=== PATIENT | male | born 1960 | race Caucasian/White ===

== ENCOUNTER 2021-10-19 17:50 | Inpatient (IN) | payer SELFPAY ==
[~2021-10-19] VITALS: Ht 182.9 cm; Wt 97.4 kg
[2021-10-19] VITALS (93 sets, daily range): BP systolic 161–168; BP diastolic 100–107; PULSE 90; TEMP 99.2; O2SAT 93–100
[2021-10-19 18:24] LABS: BASO # 0.1 K/mm3 (0.0-0.2); BASO % 1.1 % (0.0-2.0); EOS # 0.2 K/mm3 (0.0-0.7); EOS % 2.3 % (0.0-4.0); GRAN # 6.8 K/mm3 (1.4-6.5); GRAN % 73.5 % (42.2-75.2); HEMATOCRIT 44.5 % (42.0-52.0); HEMOGLOBIN 15.3 g/dl (13.5-18.0); LYMPH # 1.7 K/mm3 (1.2-3.4); LYMPH % 18.2 % (20.0-51.0); MEAN CELL VOLUME 91 fl (80.0-100.0); MEAN CORPUSCULAR HEMOGLOBIN 31 pg (27-31); MEAN CORPUSCULAR HGB CONC 34 g/dl (33.0-37.0); MEAN PLATELET VOLUME 10.7 fl (7.4-10.4); MONO # 0.4 K/mm3 (0.1-0.6); MONO % 4.7 % (1.7-9.3); PLATELET COUNT 213 K/mm3 (130-400); REDCELL DISTRIBUTION WIDTH-CV 13.4 % (11.5-14.5)
[2021-10-19 18:33] LABS: INR 1.2 (0.8-3.0); PROTHROMBIN TIME 13.7 SECONDS (9.7-12.8)
[2021-10-19 18:40] LABS: ALBUMIN 3.9 gm/dL (3.4-4.8); BILIRUBIN,TOTAL 0.6 mg/dL (0.2-1.2); CALCIUM 9.5 mg/dL (8.4-10.2); CREATININE, serum 1.31 mg/dL (0.72-1.25); POTASSIUM 3.3 mmol/L (3.5-4.5)
[2021-10-19 18:49] LABS: TROPONIN-I 0.034 ng/mL (0.00-0.033)
[2021-10-19 20:33] LABS: COLLECTION METHOD CLEAN CATCH; URINE APPEARANCE Clear (CLEAR/HAZY); URINE BLOOD Negative (NEGATIVE); URINE COLOR Yellow (YELLOW); URINE GLUCOSE Negative (NEGATIVE); URINE KETONE Negative (NEGATIVE); URINE NITRATE Negative (NEGATIVE); URINE PROTEIN(semi-quant) 1+ (NEGATIVE); URINE UROBILINOGEN 0.2 E.U/dL (0.2-1.0)
[2021-10-19 20:42] LABS: MUCOUS Present (NOT PRESENT); SQUAMOUS EPITHELIAL None Seen /hpf (0-10); URINE BACTERIA None Seen /hpf (NONE SEEN); URINE RBC 0-2 /hpf (0-2); URINE WBC 0-2 /hpf (0-2)
[2021-10-19] MEDS ORDERED: MACROBID 1100 MG/CAP PO (21:43)
[2021-10-20] VITALS (968 sets, daily range): BP systolic 128–159; BP diastolic 64–125; PULSE 66–92; TEMP 97.9–99; O2SAT 75–100
[2021-10-20 07:26] LABS: CHOLESTEROL RISK RATIO 5.6
--- NOTE | 2021-10-20 13:37 | NUR ---
Patient is currently meeting with speech therapy for their evaluation. workers' compensation hearings officer met with Altagracia Greenberg (cousin) #[phone] and cousin Kenyon Greenberg. Altagracia states that patient is not and resides in [place] alone. Patient is not employed at this time. Patient has one son, Michael that resides in [place]. Altagracia states that patient and son have a strained relationship. Patient's primary care provider is Afua Lyle in [place]. Martha with [facility] received a referral and will assess for admission to their unit. Altagracia spoke with patient's estate planning attorney, while she was at the hospital, and advised that patient's estate planning attorney will be at the hospital later today to assist patient is completing a durable power of estate planning attorney for health care and a financial power of estate planning attorney. Altagracia states she met with hospital financial counselor and will begin the [employer] [facility] application as well as disability.
[2021-10-21] VITALS (1024 sets, daily range): BP systolic 129–183; BP diastolic 72–127; PULSE 76–120; TEMP 98.1–98.6; O2SAT 56–100
[2021-10-21 06:21] LABS: ALBUMIN 3.5 gm/dL (3.4-4.8); CREATININE, serum 1.13 mg/dL (0.72-1.25); MAGNESIUM 2.2 mg/dL (1.6-2.6); PHOSPHOROUS 2.4 mg/dL (2.3-4.7); POTASSIUM 3.6 mmol/L (3.5-4.5)
--- NOTE | 2021-10-21 07:46 | NUR ---
CONSENT SIGNED BY PT FOR [place]. PT STATED THAT HE WANTED HIS DPOA CALLED.
[2021-10-21 10:21] LABS: HEMATOCRIT 42.4 % (42.0-52.0); HEMOGLOBIN 14.8 g/dl (13.5-18.0); MEAN CELL VOLUME 89 fl (80.0-100.0); MEAN CORPUSCULAR HEMOGLOBIN 31 pg (27-31); MEAN CORPUSCULAR HGB CONC 35 g/dl (33.0-37.0); MEAN PLATELET VOLUME 10.7 fl (7.4-10.4); PLATELET COUNT 230 K/mm3 (130-400); RED BLOOD COUNT 4.76 M/mm3 (4.20-5.60); REDCELL DISTRIBUTION WIDTH-CV 13.6 % (11.5-14.5)
[2021-10-21 10:25] LABS: INR 1.1 (0.8-3.0)
[2021-10-21 10:33] LABS: CALCIUM 9.2 mg/dL (8.4-10.2); CREATININE, serum 1.22 mg/dL (0.72-1.25); POTASSIUM 3.6 mmol/L (3.5-4.5)
[2021-10-21 10:52] LABS: BAND 4 % (0-10); LYMPHOCYTE 7 % (20.0-51.0); NEUTROPHILS 87 % (42.0-75.2)
[2021-10-21 10:53] LABS: PLATELET ESTIMATE NORMAL (NORMAL)
--- NOTE | 2021-10-21 13:07 | NUR ---
Addis: Zaida Situation: automatic fancy machine operator stopped by the room on rounds Background: Pt was resting but also emotional Assessment: Pt asked automatic fancy machine operator to call a cardiac nurse practitioner in [place], automatic fancy machine operator called and left message. Pt appreciated the visit Recommendation: automatic fancy machine operator will follow up as needed
--- NOTE | 2021-10-21 15:13 | NUR ---
insulation worker met with patient's cousin, Altagracia, and took copies of patient's durable power of transactional attorney for health care and provided a copy for our financial counselor, Sammi. Patient also secured a power of transactional attorney for finances.
--- NOTE | 2021-10-21 15:20 | NUR ---
tree worker met with Martha at [facility] unit and confirmed that she is following and screening patient for possible admission to their unit when stable.
[2021-10-21] MEDS ORDERED: LIPITOR 40MG TA40 MG PO (22:49)
[2021-10-21] MEDS ORDERED: PRINIVIL5 MG PO (22:50)
[2021-10-21] MEDS ORDERED: LOPRESSOR 225 MG/TAB PO (22:50)
[2021-10-21] MEDS ORDERED: NORVASC 10MG10 MG PO (22:50)
[2021-10-21] MEDS ORDERED: PREDNISONE10 MG PO (22:51)
[2021-10-21] MEDS ORDERED: CLEOCIN HCL300 MG PO (22:53)
[2021-10-21] MEDS ORDERED: ASPIRIN 32325 MG/TAB PO (23:02)
[2021-10-22] VITALS (582 sets, daily range): BP systolic 138–178; BP diastolic 88–108; PULSE 73–79; TEMP 97.7–98.4; O2SAT 88–100
--- NOTE | 2021-10-22 06:30 | NUR ---
REPORT RECEIVED FROM ROSS DIAZ; PATIENT DID NOT SLEEP LAST NIGHT AND REMAINS SITTING IN THE RECLINER HE WAS OVERNIGHT. VITAL SIGNS ARE WITHIN NORMAL LIMITS WITH THE EXCEPTION OF BLOOD PRESSURE WHICH IS ELEVATED THIS MORNING. PATIENT IS GETTING NS THROUGH PERIPHERAL LINE.
--- NOTE | 2021-10-22 14:14 | NUR ---
CALLED REPORT TO ROSS PITT; PATIENT GOING TO [facility] FOR REHAB POST STROKE. PATIENT'S VITAL SIGNS ARE WITHIN NORMAL LIMITS AND HE HAS WORKED WITH ST TODAY AND IS SWITCHING TO MECHANICAL SOFT DIET AND REMAINING ON NECTAR THICK LIQUIDS.
== END 2021-10-22 15:05 | DRG 40 ==
LOC: COL.ER 17:50 → ICU 20:19 → MEDICAL 20:19 → COL.ER 20:19 → ICU 21:36
PROVIDERS: Emergency Medicine; Nurse Practitioner Family; ADMIT Internal Medicine
PROC: 0JH632Z Insertion of Monitoring Device into Chest Subcutaneous Tissue and Fascia, Percutaneous Approach (ICD-10-PCS; principal; 2021-10-21)
DX: I63.9 Cerebral infarction, unspecified (principal); J96.01 Acute respiratory failure with hypoxia; I21.A1 Myocardial infarction type 2; E87.2 Acidosis; N17.9 Acute kidney failure, unspecified; N39.0 Urinary tract infection, site not specified; Z66 Do not resuscitate; I16.1 Hypertensive emergency; I69.354 Hemiplegia and hemiparesis following cerebral infarction affecting left non-dominant side; J44.1 Chronic obstructive pulmonary disease with (acute) exacerbation; E87.6 Hypokalemia; I49.3 Ventricular premature depolarization; E11.65 Type 2 diabetes mellitus with hyperglycemia; F17.210 Nicotine dependence, cigarettes, uncomplicated; I16.0 Hypertensive urgency; E78.5 Hyperlipidemia, unspecified; M62.81 Muscle weakness (generalized); R29.709 NIHSS score 9; I12.9 Hypertensive chronic kidney disease with stage 1 through stage 4 chronic kidney disease, or unspecified chronic kidney disease; E11.22 Type 2 diabetes mellitus with diabetic chronic kidney disease; N18.9 Chronic kidney disease, unspecified; Z88.0 Allergy status to penicillin
CPT/HCPCS: A9575; C1764; J1650; J1815; J2704; J2920; J3480; J7030; J7050; Q9967

== ENCOUNTER 2021-10-22 13:08 | Inpatient (IN) | payer SELFPAY ==
[~2021-10-22] VITALS: Ht 185.4 cm; Wt 92.8 kg
[2021-10-22] VITALS (42 sets, daily range): BP systolic 148–161; BP diastolic 82–98; PULSE 69–79; TEMP 97.6–98.2; O2SAT 90–97
[~2021-10-22 13:08] MED LIST: ASPIRIN 32325 MG/TAB PO; CLEOCIN HCL300 MG PO; LIPITOR 40MG TA40 MG PO; LOPRESSOR 225 MG/TAB PO; MACROBID 1100 MG/CAP PO; NORVASC 10MG10 MG PO; PREDNISONE10 MG PO; PRINIVIL5 MG PO
--- NOTE | 2021-10-22 15:40 | NUR ---
Pt arrived to unit from ICU via wc. Pt. transferred to bed requiring 1 assist. Pt. is alert & oriented x 4. Denies pain or discomfort. Left sided weakness noted. Pt. wears glasses. Admission assessments completed. Orientation provided to room/unit
--- NOTE | 2021-10-22 19:00 | NUR ---
RECEIVED CHANGE OF SHIFT REPORT FROM DAY SHIFT RN.
--- NOTE | 2021-10-22 19:15 | NUR ---
OBSERVED LUE FLACCID WITH LLE WEAKNESS, HAND PSYCHIATRIC REGISTERED NURSE UNEQUAL, L REGISTERED TRAVEL NURSE FLACCID. REPORTS FEELING CLAUSTROPHOBIC IN BED, REQUEST AND PIVOT TRANSFER PATIENT FROM BED TO CHAIR.
[2021-10-23 05:41] VITALS: BP 161/96; PULSE 62; TEMP 98.2
--- NOTE | 2021-10-23 06:53 | NUR ---
BEDSIDE REPORT NOW. PATIENT RESTING IN BED. CALL LIGHT IN REACH.
--- NOTE | 2021-10-23 07:20 | NUR ---
CHANGE OF SHIFT REPORT GIVEN TO DAY SHIFT RNED.
[2021-10-23 16:44] VITALS: BP 140/99; PULSE 69; TEMP 98
--- NOTE | 2021-10-23 17:46 | NUR ---
ASSESSMENT DONE AT 8 AM. WAS LATE CHARTING IT. PATIENT HAS BEEN COUGHING WITH DRINGING WITH WATER AND PILLS. STARTED ON APPLE SAUCE WITH MEDICATION AND HE HAS BEEN DOING GOOD WITH IT. SPEECH WAS AWARE. PATIENT ABLE TO GET UP X 1 TO COMMODE THIS AM AND IT WAS HARD TO GET BACK IN BED. PATIENT LEFT LEG WEAK. LEFT ARM FLACCID. PATIENT COUGH WITH THICK PHLEMG NOTED.
--- NOTE | 2021-10-23 21:15 | NUR ---
PT RESTING IN BED. REPOSITIONED FOR COMFORT. LT SIDED WEAKNESS. HAS MINIMAL NEW CLIENT BANKING SERVICES CLERK IN LT HAND. NEWS AGENT TENNIS BALL. NO COUGHING TONIGHT. TAKES HS MEDS WITH APPLESAUCE WITH NO DIFFICULTY. HAS GENERALIZED ACHES. SEE MAR FOR TYLENOL GIVEN. ALSO GAVE MELATONIN FOR SLEEP. CALL LIGHT IN REACH. BED ALARM SET.
[2021-10-24 00:44] VITALS: BP 159/91; PULSE 57; TEMP 97.7
--- NOTE | 2021-10-24 00:52 | NUR ---
PT C/O SOA. VS 159/91- 57-20-95%RA- TEMP 97.7. HAVING EXP WHEEZING. HX COPD. NOTIFIED RAMONA ZAMORA. SEE NEW ORDER FOR SVN. RT NOTIFIED.
--- NOTE | 2021-10-24 01:19 | NUR ---
PT NOW REPORTS MID EPIGASTRIC PRESSURE. NOTIFIED RAMONA ZAMORA. SEE NEW ORDERS FOR EKG AND TROPONIN.
--- NOTE | 2021-10-24 02:01 | NUR ---
LAB HERE TO DRAW TROPONIN. PT DENIES ANY FURTHER EPIGASTRIC PRESSURE AT THIS TIME. ATTEMPTED #20 GAUGE TO RT F/A X2 - INFILTRATED. TELE STARTED.
--- NOTE | 2021-10-24 02:12 | NUR ---
INT NEEDLE #20G STARTED RT F/A. FLUSHES WELL.
--- NOTE | 2021-10-24 02:16 | NUR ---
PT SLEEPING. NO DISTRESS.
[2021-10-24 04:11] VITALS: BP 147/90; PULSE 59; TEMP 97.5
[2021-10-24 04:45] LABS: BASO % 0.1 % (0.0-2.0); EOS # 0.2 K/mm3 (0.0-0.7); EOS % 1.6 % (0.0-4.0); GRAN # 6.6 K/mm3 (1.4-6.5); GRAN % 63.2 % (42.2-75.2); HEMOGLOBIN 16.1 g/dl (13.5-18.0); LYMPH # 2.9 K/mm3 (1.2-3.4); MEAN CELL VOLUME 89 fl (80.0-100.0); MEAN CORPUSCULAR HEMOGLOBIN 31 pg (27-31); MEAN CORPUSCULAR HGB CONC 34 g/dl (33.0-37.0); MEAN PLATELET VOLUME 10.5 fl (7.4-10.4); MONO # 0.7 K/mm3 (0.1-0.6); MONO % 6.7 % (1.7-9.3); PLATELET COUNT 237 K/mm3 (130-400); RED BLOOD COUNT 5.28 M/mm3 (4.20-5.60); REDCELL DISTRIBUTION WIDTH-CV 13.6 % (11.5-14.5)
[2021-10-24 05:02] LABS: CALCIUM 9.2 mg/dL (8.4-10.2); CREATININE, serum 1.15 mg/dL (0.72-1.25); POTASSIUM 3.6 mmol/L (3.5-4.5)
--- NOTE | 2021-10-24 06:49 | NUR ---
Shift report received from retail shift leader RN
[2021-10-24 07:42] VITALS: BP 143/89; PULSE 60; TEMP 97.5
--- NOTE | 2021-10-24 10:57 | NUR ---
Pt. back in room after PT. He remains on telemetry. He denies pain/discomfort. Denies additional needs. Call light is in his reach. Bed alarm is on
[2021-10-24 16:00] VITALS: BP 156/91
[2021-10-24 17:56] VITALS: BP 158/91; PULSE 74; TEMP 98
[2021-10-24 18:26] VITALS: PULSE 0
--- NOTE | 2021-10-24 20:00 | NUR ---
PT RESTING IN BED. IN GOOD SPIRITS. 2:1 ASSIST TO BR. VOIDED W/O DIFFICULTY. TELE SB-SR. NO CHEST PRESSURE OR PAIN. LOOP RECORDER DRSG CDI. LEFT SIDE HEMIPARESIS. PT USING TENNIS BALL TO EXERCISE ASSET ACCOUNTANT. NO BM TODAY. PT DENIES DISCOMFORT. BACK TO BED. CALL LIGHT IN REACH. BED ALARM SET.
[2021-10-25 00:17] VITALS: BP 11/73; BP 111/73; PULSE 60; TEMP 97.5
--- NOTE | 2021-10-25 01:48 | NUR ---
PT SLEEPING AT THIS TIME. NO SIGNS OF DISTRESS NOTED. NO VOICED CONCERNS. ASSESSED PT WHILE SLEEPING. BREATHE SOUNDS WERE CLEAR AND EQUAL BILAT. NO INDICATION FOR TREATMENT AT THIS TIME. WILL CONTINUE TO MONITOR PT.
[2021-10-25 03:03] VITALS: BP 129/72; PULSE 58; TEMP 97.8
--- NOTE | 2021-10-25 06:59 | NUR ---
Shift report received from shift lab technician RN
--- NOTE | 2021-10-25 07:51 | NUR ---
Pt eating breakfast and reporting difficulty breathing. Pt. denies choking. Reports feeling pain in left upper chest. Denies chest pressure or chest tightness. Respirations are nonlabored, LCTAB. Pt. feeling like he needs to cough up phlegm. RT notified.
--- NOTE | 2021-10-25 07:57 | NUR ---
(LATE ENTRY) SW met with patient to complete intake. Patient reports that he lives at home alone in [place]. It is a two story home with a flight of stairs. His bedroom is located upstairs but does have access to a bedroom on the first floor that he will have to move into. There are two bathrooms, one on each level of the home. The downstairs bath has a walk in shower, but is needing to be fixed. Patient reports to being fulling independent with his ADL's prior to CVA, but relied on his sister Altagracia Greenberg ([phone]) to drive him places. Patient uses a cane to assist with ambulation. He has no home oxygen needs. PCP is Dr. Afua Lyle and he utilizes [facility] in for prescriptions. Patient reports to no cost difficulty. He is uninsured, but states his sister has started the Medicaid application process. SW reviewed patient's goals of being able to walk and not crawl in addition to regaining his independence and managing stairs. SW educated patient on role with in team.
--- NOTE | 2021-10-25 07:59 | NUR ---
RT in room to administer duoneb
--- NOTE | 2021-10-25 08:13 | NUR ---
Pt reporting that it still feels hard to take a breath. Resp are nonlabored, LCTAB. Dr. Velazquez notified that pt is not feeling better. CXR and EKG ordered by Dr. Velazquez. Pt. also requesting an anti-anxiety medication. Ativan ordered x 1 dose.
--- NOTE | 2021-10-25 09:33 | NUR ---
CXR and EKG completed. Pt. sitting up in bed. He reports that chest pain has resolved but still feels like it is hard to take a deep breath. Pt. remains with regular, even respirations. LCTAB. PT in room to do bed exercises. Call light is in his reach
[2021-10-25 12:27] VITALS: BP 112/71; PULSE 64; TEMP 97.5
--- NOTE | 2021-10-25 13:11 | NUR ---
Outbound Telemarketer rounds: Outbound Telemarketer visit attempted. No Patient in room. RN had stated that if Patients were not in rooms, the Patient was most likely at therapy.
--- NOTE | 2021-10-25 14:49 | NUR ---
Pt has completed a shower w/ OT assistance. He reports feeling better than he did this morning. He would like to have a prn order for an anxiety medication for any future episodes. Will discuss with hospitalist.
[2021-10-25 16:00] VITALS: BP 133/84; PULSE 68; TEMP 97.7
--- NOTE | 2021-10-25 17:44 | NUR ---
PATIENT ALERT AND ORIENTED X4. VSS. PATIENT HERE FOR CVA. PATIENT DISPLAYS LEFT SIDED WEAKNESS, PARTICULARLY LUE. LUNGS CTA. BOWEL SOUNDS ACTIVE. DRESSING TO RIGHT UPPER CHEST WITH GAUZE AND PAPER TAPE, CDI. PATIENT DENIES ANY PAIN. MACROBID ADMINISTERED. PATIENT RESTING IN BED WITH CALL LIGHT NEAR.
[2021-10-25 18:00] VITALS: BP 153/86; PULSE 71; TEMP 97.6
--- NOTE | 2021-10-25 21:00 | NUR ---
PT RESTING IN BED. A&O X4. SPEECH SLUURED. LT SIDED WEAKNESS. PT REPORTS ANXIETY UNDER CONTROL AT THIS TIME. NO CHEST PRESSURE OR DYSPNEA. OCCASIONAL NON PRODUCTIVE COUGH. NO RESP DISTRESS. NO NEEDS AT THIS TIME. CALL LIGHT IN REACH. BED ALARM SET.
--- NOTE | 2021-10-25 22:37 | NUR ---
PT RESITN IN BED. NO DISTRESS. DENIES ANXIETY. TELEMETRY CONTINUES. DENIES CHEST PRESSURE. LT SIDED WEAKNESS. SEE SHIFT ASSESSMENT. HAS OCCASIONAL NON PRODUCTIVE COUGH. CALL LIGHT IN REACH. BED ALARM SET.
[2021-10-25 23:24] VITALS: BP 136/82; PULSE 63; TEMP 97.7
[2021-10-26 04:00] VITALS: BP 129/79; PULSE 78; TEMP 97.9
--- NOTE | 2021-10-26 04:24 | NUR ---
PT ANXIOUS AND ACHEY ALL OVER. SEE MAR FOR ATIVAN AND TYLENOL. REPOSITIONED FOR COMFORT.
--- NOTE | 2021-10-26 07:12 | NUR ---
BEDSIDE REPORT DONE. PATIENT WAS COMPLAINING OF BACK PAIN. SAT PATIENT UP AND PLACE HIM IN RECLINER. CALL LIGHT IN REACH.
[2021-10-26 08:00] VITALS: BP 135/87; PULSE 83; TEMP 97.7
--- NOTE | 2021-10-26 10:04 | NUR ---
ASSESSMENT DONE ORDER. PATIENT ALERT AND ORIENT X 4 WTIH NO MEMEORY ISSUE. NO PAIN AT THIS TIME. PATIENT HAD A BOWEL MOVEMENT TODAY (LARGE) HAD ATIVAN EARLY THIS AM. LUNG WHEEZING IN UPPER LOBES(INHALING) PATIENT IS A FORMER SMOKER AND HAS SMOKKER COUGH. PATIENT ABLE TO COUGH BUT STILL HAVE SMALL AMOUNT OF WHEEZING
[2021-10-26 11:53] VITALS: BP 122/78; PULSE 68
[2021-10-26 15:46] VITALS: BP 120/88; PULSE 78; TEMP 97.6
--- NOTE | 2021-10-26 18:24 | NUR ---
PATIENT HAD A BOWEL MOVEMENT TODAY. NEED TO USE THE WHEELCHAIR TODAY SINCE PATIENT WAS UNABLE TO GET TO THE BATHROOM WITH JUST ONE PERSON. PATIENT TODAY IS A 2 PERSON ASSISTANCE
--- NOTE | 2021-10-26 20:00 | NUR ---
PT SL AGITATED TONIGHT. WORRIED ABOUT NOT SLEEPING. CANT GET COMFORTABLE. SEE MAR FOR ATIVAN AND TYLENOL. LT SIDED HEMIPARESIS. PT REPOSITIONS SELF FOR COMFORT. TEL INTACT. DENIES CHEST PAIN OR DYSPNEA. HAS OCCASIONAL DRY COUGH. MIN AUDIBLE EXP WHEEZE. CALL LIGHT IN REACH. BED ALARM SET.
[2021-10-26 20:25] VITALS: BP 137/91; PULSE 76; TEMP 98.9
[2021-10-26 23:10] VITALS: BP 133/93; PULSE 65; TEMP 97.3
--- NOTE | 2021-10-27 00:06 | NUR ---
PT INCONTINENT OF URINE. CLEANED UP AND LINENS CHANGED. PT STARTED COUGHING. HOB ELEVATED 90 DEGREES. PERSISTENT WET COUGH. RT NOTIFIED FOR SVN. O2 SAT 98% ON RA. NOTIFIED JAKY KUMARI.
--- NOTE | 2021-10-27 00:10 | NUR ---
JAKY KUMARI IS HERE NOW.
--- NOTE | 2021-10-27 00:22 | NUR ---
STILL COUGHING BUT NOT INTENSE. SEE NEW ORDER FOR PORTABLE CXR IN AM. PT INFORMED. O2 SAT MAINTAIN 97-98%.
--- NOTE | 2021-10-27 00:35 | NUR ---
RT HERE FOR SVN TX.
--- NOTE | 2021-10-27 00:48 | NUR ---
PT INTERMITTENTLY FALLS ASLEEP BETWEEN PERIODS OF COUGHING.
--- NOTE | 2021-10-27 01:28 | NUR ---
PT HOB ELEVATED. STILL COUGHING AT TIMES. NONPRODUCTIVE. PT ACHEY FROM COUGHING. GAVE TYLENOL WITH APPLESAUCE.
[2021-10-27 03:51] VITALS: BP 119/81; PULSE 85; TEMP 97.6
--- NOTE | 2021-10-27 04:57 | NUR ---
PT RESTING AT THIS TIME. NO DISTRESS.
--- NOTE | 2021-10-27 06:18 | NUR ---
PT RESTING. NO RESP DISTRESS. OCCASIONAL LOOSE NONPRODUCTIVE COUGH NOTED. LAB AND RADIOLOGY HERE EARLIER.
[2021-10-27 06:34] LABS: BASO # 0.1 K/mm3 (0.0-0.2); BASO % 0.3 % (0.0-2.0); EOS # 0.2 K/mm3 (0.0-0.7); EOS % 1.3 % (0.0-4.0); GRAN # 12.4 K/mm3 (1.4-6.5); GRAN % 73.5 % (42.2-75.2); HEMATOCRIT 48.4 % (42.0-52.0); HEMOGLOBIN 16.8 g/dl (13.5-18.0); LYMPH % 17.5 % (20.0-51.0); MEAN CELL VOLUME 89 fl (80.0-100.0); MEAN CORPUSCULAR HEMOGLOBIN 31 pg (27-31); MEAN CORPUSCULAR HGB CONC 35 g/dl (33.0-37.0); MEAN PLATELET VOLUME 10.9 fl (7.4-10.4); MONO # 1.2 K/mm3 (0.1-0.6); MONO % 6.9 % (1.7-9.3); PLATELET COUNT 266 K/mm3 (130-400); RED BLOOD COUNT 5.44 M/mm3 (4.20-5.60); REDCELL DISTRIBUTION WIDTH-CV 13.3 % (11.5-14.5)
--- NOTE | 2021-10-27 06:51 | NUR ---
Shift report received from shift supervisor rn RN
[2021-10-27 06:58] LABS: CALCIUM 9.3 mg/dL (8.4-10.2); CREATININE, serum 1.17 mg/dL (0.72-1.25); MAGNESIUM 2.3 mg/dL (1.6-2.6); POTASSIUM 3.9 mmol/L (3.5-4.5)
[2021-10-27 08:00] VITALS: BP 126/83; PULSE 94; TEMP 98
--- NOTE | 2021-10-27 08:40 | NUR ---
Pt. noted to have frequent while coughing eating breakfast. Pt. feels that his liquids were causing him to cough. He reports that he is feeling tired today d/t being up all night coughing. ST notified. LCTAB. VSS. Call light is within his reach
[2021-10-27 12:00] VITALS: BP 129/81; PULSE 81; TEMP 97.8
--- NOTE | 2021-10-27 12:55 | NUR ---
Pt assisted back to bed using a gait belt and FWW. Pt had continued coughing while eating his lunch. Pt education provided re: sitting up in chair for meals. Initial dose of IV Maxipime given to IV site right forearm. No sx of infiltration post IV med admininstration. Pt. continues to report feeling tired. No wheezing or difficulty breathing. Call light is in his reach. Bed alarm
[2021-10-27 16:00] VITALS: BP 120/66; PULSE 76; TEMP 97.2
--- NOTE | 2021-10-27 17:44 | NUR ---
Pt tolerated a mech soft dinner w/out episodes of coughing/choking. Pt. resting in left side lying position in bed. Denies any needs at this time. Call light is in his reach
--- NOTE | 2021-10-27 19:08 | NUR ---
RECEIVED CHANGE OF SHIFT REPORT FROM DAY SHIFT RN.
[2021-10-27 20:17] VITALS: BP 113/78; PULSE 72; TEMP 98.2
[2021-10-28] VITALS (7 sets, daily range): BP systolic 91–144; BP diastolic 65–98; PULSE 60–95; TEMP 97.2–98.2
--- NOTE | 2021-10-28 00:31 | NUR ---
PATIENT REFUSED SCD AT , DENIED ANY OTHER NEEDS AT THAT TIME.
--- NOTE | 2021-10-28 06:49 | NUR ---
Shift report received from warehouse shift supervisor RN
--- NOTE | 2021-10-28 07:03 | NUR ---
CHANGE OF SHIFT REPORT GIVEN TO DAY SHIFT RNYOANDY.
--- NOTE | 2021-10-28 10:48 | NUR ---
Pt is currently off the unit for Group Therapy
--- NOTE | 2021-10-28 18:30 | NUR ---
RECEIVED CHANGE OF SHIFT REPORT FROM DAY SHIFT RN.
--- NOTE | 2021-10-28 18:33 | NUR ---
IV abx given. Pt. reports feeling like he still cannot take in a deep enough breath to elicit a deep cough. He thinks that nebulizer treatments sometimes help him cough better. RT contacted for treatment
[2021-10-29] VITALS (8 sets, daily range): BP systolic 101–135; BP diastolic 64–87; PULSE 63–99; TEMP 97.4–99.3
--- NOTE | 2021-10-29 06:41 | NUR ---
BEDSIDE REPORT DONE. PATIENT RESTING IN BED. CALL LIGHT IN REACH
--- NOTE | 2021-10-29 07:26 | NUR ---
CHANGE OF SHIFT REPORT GIVEN TO DAY SHIFT RNDE.
--- NOTE | 2021-10-29 10:48 | NUR ---
ASSESSMENT DONE ORDER. PATIENT ALERT X 4 WITH NO MEMORY ISSUE. PATIENT HAD AN EPOSIDE OF VOMITING TODAY WITH PILLS PLUS FOOD. LUNG RALES NOTED BUT PATIEN STATED THAT HE HSA BEEN HAVING RALES SINCE YESTERDAY DUE TO STARTING THE MUCINEX. PATIENT STATED THAT HE WAS ABLE TO TAKE A DEEP BREATH AND DOING BETTER. INFORM DOCTOR MIREYA AND SPEECH.
--- NOTE | 2021-10-29 14:20 | NUR ---
Reviewed Team Conference note w/ pt & provided copy. Informed him the team does not feel he is ready for d/c so will re-evaluate next 11/05/21. He stated he is fine w/ this plan. Told him we would like to do a family meeting next Wednesday & he okayed for SW to contact his cousin, Altagracia. Will continue to follow for d/c planning & support.
--- NOTE | 2021-10-29 18:48 | NUR ---
ASPIRATION AGAIN TODAY DRINKING WATER. PATIENT VOMITED X 1 BUT THIS TIMIE IT WAS JUST WATER. PATIENT WAS HAVING A HARD TIME BREATHING AFTER 15 SEC. PATIENT STATED THAT HE ABLE TO BREATH BETTER NOW. SPOKE WITH KAI ARMINDA FONSECA AND SHE WILL ORDER BREATHING TREATMENT, NPO AND FLUIDS, CHEST X RAY. INFORM NIGHT NURSE ABOUT NEW ORDER
--- NOTE | 2021-10-29 18:54 | NUR ---
RECEIVED CHANGE OF SHIFT REPORT FROM DAY SHIFT RN. PATIENT REPORTS HAS SMALL BM THIS MORNING. DENIES ANY NEEDS AT THIS TIME.
--- NOTE | 2021-10-29 20:00 | NUR ---
DENIES CHEST PAIN/SOA AT THIS TIME. DENIES NAUSEA. REPORT HAS COUGH BUT NO SPUTUM EXPECTORATED. DENIES ANY NEEDS AT THIS TIME.
[2021-10-30 04:07] VITALS: BP 100/68; PULSE 80; TEMP 98.8
--- NOTE | 2021-10-30 05:41 | NUR ---
PATIENT NPO PER D.O. THROUGHOUT EVENING AND NIGHT. OBSERVED INTERMITTENT MOIST NONPRODUCTIVE COUGHING. DENIES CHILLING/CHEST PAIN/SOA DURING NIGHT. EXIT ALARM ON WHEN IN BED. EXIT ALARMS ON WHEN IN BED OR UP IN CHAIR. CALL LIGHT WITHIN REACH.
--- NOTE | 2021-10-30 06:39 | NUR ---
BEDSIDE REPORT DONE. PATIENT RESTING IN BED. CALL LIGHT IN REACH
[2021-10-30 07:23] LABS: BASO # 0.1 K/mm3 (0.0-0.2); BASO % 0.8 % (0.0-2.0); CALCIUM 8.5 mg/dL (8.4-10.2); CREATININE, serum 1.22 mg/dL (0.72-1.25); EOS # 0.1 K/mm3 (0.0-0.7); EOS % 1.1 % (0.0-4.0); GRAN # 8.8 K/mm3 (1.4-6.5); GRAN % 74.9 % (42.2-75.2); HEMATOCRIT 45.8 % (42.0-52.0); HEMOGLOBIN 15.7 g/dl (13.5-18.0); LYMPH # 1.7 K/mm3 (1.2-3.4); LYMPH % 14.4 % (20.0-51.0); MEAN CELL VOLUME 91 fl (80.0-100.0); MEAN CORPUSCULAR HEMOGLOBIN 31 pg (27-31); MEAN CORPUSCULAR HGB CONC 34 g/dl (33.0-37.0); MONO % 8.4 % (1.7-9.3); PLATELET COUNT 211 K/mm3 (130-400); POTASSIUM 4.5 mmol/L (3.5-4.5); RED BLOOD COUNT 5.04 M/mm3 (4.20-5.60); REDCELL DISTRIBUTION WIDTH-CV 13.3 % (11.5-14.5)
[2021-10-30 08:05] VITALS: BP 109/69; PULSE 86; TEMP 97.9
--- NOTE | 2021-10-30 09:07 | NUR ---
ASSESSMENT DONE. PATIENT ALERT X 4 WTIH NO MEMORY ISSUE. PATIENT HAD AN EPOSIDE OF CHOKING ON WATER YESTERDAY. STARTED ON NS FLUIDS,NPO AND CHEST X RAY WAS DONE LAST NIGHT AND IT WAS NORMAL. PATIENT STATED THAT HE HAS A HARD TIME BREATHING BUT OVER ALL DOING GOOD. BOWEL SOUND ACTIVE.
[2021-10-30 11:58] VITALS: BP 115/72; PULSE 82; TEMP 98
[2021-10-30 16:00] VITALS: BP 127/78; PULSE 79; TEMP 98
--- NOTE | 2021-10-30 18:34 | NUR ---
Doctor Dave spoke with with patient regarding GI consul regarding throat due to aspiration,swallowing. patient stated if he can hold off until next week and see if the mechanical soft with nectar thickener help him. patient did inform that he was always eating fast and its hard to slow down.
--- NOTE | 2021-10-30 18:54 | NUR ---
RECEIVED NEW ORDER TO DISCONTINUE IV FLUIDS IF PATIENT WILL BE EATING. IV FLUIDS WAS DISCONTINUE AND PATIENT IS AWARE ABOUT IT. IV SITE STILL INTACT
--- NOTE | 2021-10-30 20:30 | NUR ---
PT RESTING IN BED. LT SIDED WEAKNESS. SLURRED SPEECH. SWALLOW PRECAUTIONS. NECTAR THICKENED LIQ. TAKES PILLS WHOLE WITH APPLESAUCE. KEEP HOB ELEVATED X 30 MIN POST PO. DENIES PAIN. CALL LIGHT IN REACH. BED ALARM SET.
[2021-10-30 20:42] VITALS: BP 99/64; PULSE 78; TEMP 98.7
[2021-10-31 00:27] VITALS: BP 140/80; PULSE 85; TEMP 98
--- NOTE | 2021-10-31 03:00 | NUR ---
PT PULLED OFF TELEMETRY LEADS AND VOIDED IN WATER MUG. ONCE AWAKE PT ORIENTED. FRESH NECTAR THICK LIQUID WATER PROVIDED. REMINDED PT TO SIT AT 90 DEGREES BEFORE DRINKING.
[2021-10-31 04:00] VITALS: BP 129/78; PULSE 82; TEMP 98.1
--- NOTE | 2021-10-31 06:57 | NUR ---
Shift report received from assembler 1st shift RN
[2021-10-31 07:15] VITALS: BP 140/82
--- NOTE | 2021-10-31 08:09 | NUR ---
Pt speaking with nurse. Speech noted to be clear except when pt was trying to say "no PT on Sundays". Speech was garbled when he attempted to say this phrase. Pt made 3 attempts to say "no "PT on Sundays" before saying it clearly
--- NOTE | 2021-10-31 08:39 | NUR ---
Pt ate his breakfast w/out episodes of choking or coughing. Pt. was provided his prescribed diet. Pt. is currently off the unit with PT
--- NOTE | 2021-10-31 09:10 | NUR ---
Pt is back from PT and is sitting up in the recliner. He reported back pain this morning during breakfast and a position change was helpful. Pt. currently denying back pain. K-pad placed in room for future use if back pain returns. Pt. denies additional needs at this time. Call light is in his reach
--- NOTE | 2021-10-31 09:26 | NUR ---
Telemetry dc'd as ordered. Pt. working with OT for showering
--- NOTE | 2021-10-31 16:01 | NUR ---
Pt sitting up in bed. He denies pain or discomfort. Denies additional needs. Call light is in his reach.
[2021-10-31 17:25] VITALS: BP 121/77; PULSE 83; TEMP 97.8
--- NOTE | 2021-10-31 21:47 | NUR ---
SHIFT REPORT FROM RYAN HAWKINS. PATIENT IN BED RESTING ON ROOM ENTRY. DENIES PAIN. HS MEDS PER EMAR. PILLS CRUSHED IN APPLESAUCE. DENIES ADDITIONAL NEEDS. CALL LIGHT IN REACH, BED ALARM ON.
[2021-11-01 05:44] VITALS: BP 111/74; PULSE 85; TEMP 97.8
--- NOTE | 2021-11-01 06:44 | NUR ---
Received shift report from the rn shift mgr nurse, Oscar Melendrez RN
--- NOTE | 2021-11-01 09:40 | NUR ---
Patient awake, laying in bed. Alert and oriented. Patient has weakness to the left side of the body. Pushes and headlight assembler unequal. INT on right hand dry and intact. No redness or swollen noted. Dressing on chest from loop recorder dry and intact. AM meds administered, patient tolerated well with apple sauce. Patient states he has slight sensation to the left arm. Patient denies pain at this time.
--- NOTE | 2021-11-01 09:51 | NUR ---
Patient c/o discomfort to lower back and requested to sit in the recliner by the bedside. Patient assisted to the chair without difficulty. Call perez place within reach.
--- NOTE | 2021-11-01 09:53 | NUR ---
Patient left the unit at 0924 for physical therapy.
--- NOTE | 2021-11-01 10:32 | NUR ---
Patient is back to the unit from physical therapy. Patient is laying bed. No needs at this time. Will continue monitoring patient. Call perez place within reach.
[2021-11-01 17:20] VITALS: BP 126/82; PULSE 93; TEMP 98.2
--- NOTE | 2021-11-01 18:57 | NUR ---
Patient laying in bed coughing. Patient c/o post nasal drip. Patient denies of respiratory distress. I cup of water mix with nectar offer to patient. Patient tolerated it well. Call perez place within reach.
--- NOTE | 2021-11-01 19:22 | NUR ---
RECEIVED CHANGE OF SHIFT REPORT FROM DAY SHIFT RN. EXIT ALARMS ON WHEN IN BED OR UP IN CHAIR. PATIENT DENIES ANY NEEDS AT THIS TIME. CALL LIGHT WITHIN REACH.
--- NOTE | 2021-11-01 20:10 | NUR ---
REQUESTED AND GIVEN TUMS FOR C/O ACID REFLUX. SEE MAR.
[2021-11-01 22:00] VITALS: BP 128/83
[2021-11-02 01:50] VITALS: TEMP 99.6
--- NOTE | 2021-11-02 01:50 | NUR ---
PATIENT REPORTS SWEATING AND FEELING HOT. SEE [facility] FOR TEMP CHECK. DENIES CHILLING/CHEST PAIN/SOA AT THIS TIME. SWEATING CLOTHING REMOVED, PATIENT WANTING TO KEEP SWEAT PANTS ON, DRY FLAT SHEET APPLIED, NO BLANKET. PATIENT GIVEN TYLENOL RECENTLY, SEE MAR. NO OTHER NEEDS REPORTED.
[2021-11-02 05:43] VITALS: BP 114/78; PULSE 76; TEMP 98.2
--- NOTE | 2021-11-02 06:44 | NUR ---
bedside shift report received from ROSS Merrill
--- NOTE | 2021-11-02 06:48 | NUR ---
CHANGE OF SHIFT REPORT GIVEN TO DAY SHIFT SAMMI HAWKINS.
--- NOTE | 2021-11-02 07:25 | NUR ---
sitting up in bed watching TV, ready for breakfast
--- NOTE | 2021-11-02 08:00 | NUR ---
had breakfast and tolerated well, full assessment completed, see interventions for further info, left side racecar driver is weaker than left and when checking strength of lower extremities left side remains weaker than right,
--- NOTE | 2021-11-02 09:00 | NUR ---
assisted up to bathroom and had bowel movement, am care provided and dressed and out and into recliner, denies further needs
--- NOTE | 2021-11-02 12:00 | NUR ---
is feeling anxious and sad since family left, medicated with ativan 0.5mg po, sitting in recliner eating lunch
--- NOTE | 2021-11-02 12:30 | NUR ---
assisted back to bed to take a nap per his request
--- NOTE | 2021-11-02 13:30 | NUR ---
appears to be sleeping, resp quiet and easy
--- NOTE | 2021-11-02 15:00 | NUR ---
resting in bed watching TV, denies needs
--- NOTE | 2021-11-02 17:23 | NUR ---
c/o indigestion and requesting tums, given tums 500mg
[2021-11-02 17:27] VITALS: BP 112/66; PULSE 88; TEMP 98.3
--- NOTE | 2021-11-02 18:22 | NUR ---
bedside shift report given to ROSS Merrill
--- NOTE | 2021-11-02 18:52 | NUR ---
RECEIVED CHANGE OF SHIFT REPORT FROM DAY SHIFT RN. PATIENT SLEEPING, EXIT ALARM ON, DOES NOT WAKE WHEN ROOM ENTERED BY NURSING ON ROUNDS. BREATHING NONLABORED AND EVEN. CALL LIGHT WITHIN REACH.
[2021-11-02 20:57] VITALS: BP 122/90
[2021-11-03 05:50] VITALS: BP 114/78; PULSE 95; TEMP 98.9
--- NOTE | 2021-11-03 06:57 | NUR ---
BEDSIDE REPORT DONE. PATIENT RESTING IN BED. CALL LIGHT IN REACH
--- NOTE | 2021-11-03 07:04 | NUR ---
CHANGE OF SHIFT REPORT GIVEN TO DAY SHIFT RNED.
--- NOTE | 2021-11-03 10:47 | NUR ---
ASSESSMENT DONE . PATIENT ALERT AND ORIENT. PATIENT WAS NOT HAPPY TODAY SINCE HE COULD NOT WALK AROUND THE NURSING STATION HE DID OVER THE WEEKEND.PATIENT STATED THAT HE IS VERY TIRED TODAY AND IS NOT KNOW WHY. LUNG CLEAR. BOWEL SOUND ACTIVE
--- NOTE | 2021-11-03 14:55 | NUR ---
Legal Job Titles met with patient to check in. Patient stated the weekend went okay but after PT this morning, everything "went to shit". Patient stated he has no strength but that the team is working with him. SW addressed transportation needs with patient who advised he doesn't drive, but his cousin Altagracia takes him wherever he needs to go. FERNANDA also emailed [employer] to check in on the status of patient's medicaid application.
[2021-11-03 17:12] VITALS: BP 101/74; PULSE 85; TEMP 98.6
--- NOTE | 2021-11-03 18:07 | NUR ---
pATIENT HAD INCREASE PAIN TODAY AND INFORM COUSIN TO BRING HIS BACK BRACE DUE TO STANDING TO LONG. WRIST BRACE IS IN FACILITY, INFORM NIGHT NURSE ABOUT IT.
--- NOTE | 2021-11-03 19:00 | NUR ---
RECEIVED CHANGE OF SHIFT REPORT FROM DAY SHIFT RN. PATIENT RESTING IN BED WITH NO REPORTED NEEDS AT TIME OF REPORT. EXIT ALARM ON, CALL LIGHT WITHIN REACH.
[2021-11-03 21:00] VITALS: BP 117/75
[2021-11-04 05:06] VITALS: BP 109/79; PULSE 88; TEMP 98.4
--- NOTE | 2021-11-04 07:03 | NUR ---
Shift report received from shift nurse manager RN
--- NOTE | 2021-11-04 07:11 | NUR ---
Change of shift report given to day shift RNSina.
--- NOTE | 2021-11-04 09:14 | NUR ---
Pt off the unit to work with OT
--- NOTE | 2021-11-04 09:59 | NUR ---
Loop recorder dressing removed (gauze, tegaderm). Okay to remove per KENYETTA Carver. Steristrips left in place. Discussed w/ pt that it is okay to shower but to avoid direct stream of water to incision. Pt. verbalized understanding. Pt was scheduled to follow up in device clinic this morning at 11:30 - this has been canceled d/t pt's inpatient status. Per Wen, she will see if Cardiology will see pt on IPR unit
--- NOTE | 2021-11-04 11:16 | NUR ---
Grid Casting Machine Operator Helper followed up with [employer] Counselor who advised she would be submitting patient's Medicaid application today.
--- NOTE | 2021-11-04 15:23 | NUR ---
Pt resting supine in bed. He denies back pain or general pain/discomfort. He denies additional needs. Call light is in his reach. Bed alarm is on
[2021-11-04 16:40] VITALS: BP 104/72; PULSE 89; TEMP 98.5
--- NOTE | 2021-11-04 19:00 | NUR ---
RECEIVED CHANGE OF SHIFT REPORT FROM DAY SHIFT RN. PATIENT RESTING IN BED DURING REPORT, EXIT ALARM ON, CALL LIGHT WITHIN REACH.
[2021-11-04 21:40] VITALS: BP 130/74
[2021-11-05 05:43] VITALS: BP 111/76; PULSE 92; TEMP 99.8
--- NOTE | 2021-11-05 06:47 | NUR ---
BEDSIDE REPORT. PATIENT RESTING IN BED. CALL LIGHT IN REACH
--- NOTE | 2021-11-05 07:00 | NUR ---
CHANGE OF SHIFT REPORT GIVEN TO DAY SHIFT RNED.
--- NOTE | 2021-11-05 10:20 | NUR ---
Patient/Family meeting conducted w/ pt & his cousin. Also present was the MD, PT, ST, Dietitian, & fisheries director. The team talked about how pt has been doing from a medical & functional standpoint. Pt & family were pleased to hear he was making progress. Informed them that no d/c date has been set but will re-evaluate next 11/12/21. They were fine w/ this plan. They had questions which the team answered.
--- NOTE | 2021-11-05 12:53 | NUR ---
Initial visit; Patient was quite winded when Refrigeration Tech went in to visit. He said he was resting before he works out again with Physical Therapist. Jarett was receptive to Refrigeration Tech keeping him in her prayers.
[2021-11-05 16:55] VITALS: BP 109/70; PULSE 83; TEMP 98.4
--- NOTE | 2021-11-05 17:48 | NUR ---
PATIENT UNDERSTOOD THAT HE WILL BE HERE FOR ANOTHER WEEK SO HE CAN GET STRONG. PATIENT DID SHOW ME THAT HE ABLE TO USE LEFT ARM TO HELP BRING HIM UP FRM A LYING POSITION TO A SITTING POSITION. PATIENT CONTINUE TO DRINK WATER NECTUR THICKEN AND HAS BEEN TOLERATED IT
[2021-11-05 20:29] VITALS: BP 95/68; PULSE 75
--- NOTE | 2021-11-05 22:08 | NUR ---
BP 95/68 AT MEDS, FAMILY RESOURCE SPECIALIST NOTIFIED OK TO HOLD LOPRESSOR
[2021-11-06 05:47] VITALS: BP 104/68; PULSE 87; TEMP 98.3
--- NOTE | 2021-11-06 06:51 | NUR ---
BEDSIDE REPORT DONE. CALL LIGHT IN [facility]. PATIENT RESTING.
--- NOTE | 2021-11-06 09:24 | NUR ---
PATIENT ALERT AND ORIENTED. STILL NEED ALOT OF PT/OT DUE TO HIS WEAKNESS ON LEFT SIDE. PATIENT ABLE TO USE HAND BUT ACHE ALOT. PATIENT APPETITE GOOD. BOWEL SOUND ACTIVE WITH A BOWEL MOVEMENT YESTERDAY
[2021-11-06 17:31] VITALS: BP 95/72; PULSE 85; TEMP 97.3
--- NOTE | 2021-11-06 18:37 | NUR ---
PATIENT HAS BEEN RESTING SINCE THERAPY WAS OVER. NO DISTRESS NOTED.
--- NOTE | 2021-11-06 21:00 | NUR ---
PT RESTING IN BED. SPEECH SL SLURRED. LT SIDED WEAKNESS. TAKES HS MEDS IN APPLESAUCE. NO CHOKING. CONTINUED NECTAR THICK LIQUIDS. SEE MAR FOR TYLENOL GIVEN FOR GENERAL ACHES. ATIVAN GIVEN WELL. CALL LIGHT IN REACH. BED ALARM SET.
[2021-11-07 05:13] VITALS: BP 108/77; PULSE 88; TEMP 98.6
--- NOTE | 2021-11-07 06:55 | NUR ---
Shift report received from security shift manager RN
--- NOTE | 2021-11-07 08:10 | NUR ---
Pt sitting up in bed. He has just completed breakfast. Pt. did not have any episodes of coughing/choking/aspirating during his meal. He denies pain/discomfort. Reports sleeping "okay" during the night. PT in room to work w/ pt.
--- NOTE | 2021-11-07 15:09 | NUR ---
Pt resting in bed. Pt. reporting that while doing a leg extension exercise during PT this morning, he felt sternal chest pain. The pain lasted only as long as the exercise. The pain has not returned so far. Pt. denies any chest soreness at this time. Denies shortness of air or difficulty breathing. Discussed w/ pt. that if this pain returns to notify the nurse. Pt. voiced understanding
--- NOTE | 2021-11-07 17:23 | NUR ---
ASSOCIATE PROFESSOR OF MATHEMATICS reporting oral temp of 102F. Pt eating dinner. Will recheck temp
[2021-11-07 17:24] VITALS: BP 102/64; PULSE 85
[2021-11-07 18:09] VITALS: TEMP 99
--- NOTE | 2021-11-07 18:10 | NUR ---
Temp rechecked: 99F orally. Pt denies feeling chills/sweats, fatigue, body aches, shortness of breath, or headache. Will continue to monitor
--- NOTE | 2021-11-07 21:00 | NUR ---
PT RESTING IN BED. LT SIDED WEAKNESS. REQUEST ATIVAN FOR ANXIETY. TAKES HS MEDS WHOLE IN APPLESAUCE. CONTINUED ON NECTAR THICK LIQUIDS FOR SWALLOW PRECAUTIONS. NO OTHER NEEDS AT THIS TIME. CALL LIGHT IN REACH. BED ALARM SET.
[2021-11-08 05:00] VITALS: BP 104/70; PULSE 84; TEMP 98.6
--- NOTE | 2021-11-08 05:00 | NUR ---
PT C/O OF 2 SECOND CHEST PAIN. VSS. HEART RATE REGULAR. NOTIFIED JAKY KUMARI. NEW ORDER.
--- NOTE | 2021-11-08 05:12 | NUR ---
SEE MAR FOR ATIVAN 0.5MG PO GIVEN FOR ANXIETY.
--- NOTE | 2021-11-08 06:00 | NUR ---
PT SLEEPING NO DISTRESS.
--- NOTE | 2021-11-08 06:46 | NUR ---
Shift report received from casino shift manager RN
--- NOTE | 2021-11-08 08:46 | NUR ---
Pt lying supine in bed w/ HOB slighty elevated. Pt. tolerated his recommended diet for breakfast with no coughing/choking/aspirating. Pt. reporting an episode of chest pain during the noc shift that lasted a few seconds. Pt. stated "I think it was anxiety. I heard a baby crying. Someone was watching a video or something and it made me anxious". Pt. denies any further episodes of chest pain at this time. PRN Tylenol given this morning for low back pain. Pt. denies additional needs at this time. Call light is in his reach.
--- NOTE | 2021-11-08 09:49 | NUR ---
Pt escorted by wheelchair to Group Therapy
--- NOTE | 2021-11-08 12:27 | NUR ---
Rubber Gasket Inspector Trimmer rounds: Rubber Gasket Inspector Trimmer visit attempted during rounds. No Patient in room at time of attmept.
--- NOTE | 2021-11-08 12:28 | NUR ---
Pt visiting with his cousin and a friend. He is sitting up in bed and has just eaten lunch. No coughing/choking during this meal. Pt denies pain/discomfort. Denies any shortness of air. No further episodes of chest pain at this time. Will continue to monitor. Call light is in his reach
[2021-11-08 17:14] VITALS: BP 103/65; PULSE 91; TEMP 98.3
--- NOTE | 2021-11-08 18:08 | NUR ---
Pt resting supine in bed. Pt. tolerated his dinner w/out episodes of choking or coughing. He denies pain or discomfort. Call light is in his reach
--- NOTE | 2021-11-08 20:30 | NUR ---
PT RESTING IN BED. LT SIDED WEAKNESS. PT REQUEST ATIVAN AT HS. ENC INCENTIVE SPIROMETRY FREQUENTLY. NEEDED INSTRUCTIONS ON PROPER USE. REFUSES SCD'S. CALL LIGHT IN REACH. BED ALARM SET.
[2021-11-09 05:51] VITALS: BP 111/81; PULSE 74; TEMP 98.1
--- NOTE | 2021-11-09 06:56 | NUR ---
Shift report received from enlisted aircrew/aerial observer/gunner RN
--- NOTE | 2021-11-09 12:53 | NUR ---
Pt sitting up in bed eating lunch. He ate breakfast this morning w/out any coughing/choking episodes. Pt. has had minimal coughing while eating his lunch. Pt reminded to take sips after bites and to eat slower. Pt. verbalized understanding
--- NOTE | 2021-11-09 14:59 | NUR ---
Pt coughing frequently. RT on unit & assessed pt and encouraged use of IS. Pt. became tearful while speaking with RT and stated that he feels tired all the time and is concerned that he is dying. Pt. requesting Ativan dose - medication administered.
--- NOTE | 2021-11-09 16:25 | NUR ---
Pt sleeping in bed. HOB elevated approx 30 degrees. Call light is in his reach. Bed alarm is on
--- NOTE | 2021-11-09 17:10 | NUR ---
Pt expressing that he feels like he is not getting enough food during meal times. Pt. began to get tearful when stating this. Email sent to JR Chatman to request larger portions. Will pass on to oncoming nurse for the next shift
[2021-11-09 17:14] VITALS: BP 115/73; PULSE 79; TEMP 97.7
--- NOTE | 2021-11-09 21:05 | NUR ---
no BM since 11/07, miralax given with HS meds
[2021-11-10 04:46] VITALS: BP 143/72; PULSE 58; TEMP 97.7
--- NOTE | 2021-11-10 06:18 | NUR ---
up to restroom this am with 1 assist, GB/WW, reports large BM. tolerating nectar thick liquids, no coughing/choking. no s/sx of emotional distress tonight.
[2021-11-10 07:55] LABS: CALCIUM 9.2 mg/dL (8.4-10.2); CREATININE, serum 1.08 mg/dL (0.72-1.25); MAGNESIUM 2.3 mg/dL (1.6-2.6)
[2021-11-10 08:13] LABS: BASO % 0.4 % (0.0-2.0); EOS # 0.1 K/mm3 (0.0-0.7); EOS % 0.8 % (0.0-4.0); GRAN # 8.8 K/mm3 (1.4-6.5); GRAN % 80.9 % (42.2-75.2); HEMATOCRIT 44.9 % (42.0-52.0); HEMOGLOBIN 14.5 g/dl (13.5-18.0); LYMPH # 1.6 K/mm3 (1.2-3.4); LYMPH % 14.6 % (20.0-51.0); MEAN CELL VOLUME 94 fl (80.0-100.0); MEAN CORPUSCULAR HEMOGLOBIN 30 pg (27-31); MEAN CORPUSCULAR HGB CONC 32 g/dl (33.0-37.0); MEAN PLATELET VOLUME 10.5 fl (7.4-10.4); MONO # 0.3 K/mm3 (0.1-0.6); MONO % 2.9 % (1.7-9.3); PLATELET COUNT 328 K/mm3 (130-400); RED BLOOD COUNT 4.79 M/mm3 (4.20-5.60); REDCELL DISTRIBUTION WIDTH-CV 13.3 % (11.5-14.5)
--- NOTE | 2021-11-10 14:28 | NUR ---
Pt doing well today. Continue to thicken liquids and crush his medications. Pt did cough a little after drinking some water earlier this afternoon. He stated it just felt like it went down the wrong pipe, after a few coughs, he was okay again.
[2021-11-10 17:39] VITALS: BP 103/68; PULSE 74; TEMP 97.8
[2021-11-11 06:05] VITALS: BP 127/74; PULSE 53; TEMP 97.7
--- NOTE | 2021-11-11 14:34 | NUR ---
Pt has done well today. Currently resting with eyes closed even non labored breathing. Pt did wake easily for medication. Pt has completed his therapy for the day and stated that he is pretty tired. No complaints of pain. Pt continues to reposition in bed and uses the call light when he needs to go to the restroom. This morning pt thought someone was in his bathroom, had to convince pt that nobody was in the bathroom. Pt intially asked for anxiety medication, but he did report that the ativan made him really sleepy. Discussed him starting therapy and seeing of the anxiety subsides that way he won't be too tired for therapy. Pt agreed on this and ended up doing well with no issues.
--- NOTE | 2021-11-11 16:16 | NUR ---
Pts has arrived to visit. Pt denies any needs at this time
[2021-11-11 18:08] VITALS: BP 128/79; PULSE 76; TEMP 97.3
[2021-11-12 04:50] VITALS: BP 118/79; PULSE 53; TEMP 97.6
--- NOTE | 2021-11-12 05:43 | NUR ---
pt ambulated to restroom with SBA using walker prior to bed. using urinal during the noc, rested well. no c/o discomfort or anxiety.
--- NOTE | 2021-11-12 06:56 | NUR ---
Shift report received from wire roller RN
[2021-11-12 07:20] LABS: CALCIUM 9.1 mg/dL (8.4-10.2); CREATININE, serum 1.13 mg/dL (0.72-1.25); POTASSIUM 4.4 mmol/L (3.5-4.5)
--- NOTE | 2021-11-12 08:36 | NUR ---
Pt off the unit to work with PT. Pt is still feeling like he is not getting enough food. He requested a 2nd breakfast tray this morning. He is concerned that his nutrition is not adequate and feels like the additional meals/larger portions help him feel more energetic for PT/OT.
--- NOTE | 2021-11-12 12:46 | NUR ---
Rash noted to inner gluteal crease and over the right buttock. Rash is red. Pt. denies itchy or pain to this rash. Per Dr. Acosta, rash appears as it may be fungal. Okay to use a barrier cream x 2-3 days and monitor rash for now
--- NOTE | 2021-11-12 14:47 | NUR ---
Reveiwed Team conference note w/ pt & provided copy. Informed pt the team feels he has made some progress but continues to have some variability from day to day, which he agreed w/. Told him the team is not setting a d/c date & wants to re-evaluate next week, which again he agreed w/. He did state that he is working w/ his cousin on getting him a hospital bed, w/c, & elevator. Told him that SW will contact his cousin & provide her w/ an update from the team conference.
--- NOTE | 2021-11-12 14:54 | NUR ---
Pt. resting in bed w/ HOB elevated approx 30 degrees. Applesauce given as a snack. Pt denies pain/discomfort. Minimal coughing heard during lunch but no choking/aspiration. Pt. denies additional needs at this time. Call light is in his reach
--- NOTE | 2021-11-12 16:03 | NUR ---
Pt sleeping supine in bed. HOB elevated approx 20 degrees. Call light is in his reach. Bed alarm is on
[2021-11-12 17:50] VITALS: BP 114/71; PULSE 82; TEMP 98
--- NOTE | 2021-11-12 18:17 | NUR ---
Pt coughed frequently during his dinner meal. Finely chopped carrots were provided in additional to ground meat w/ gravy. Pt. reported that the carrots were still "on the crunchy side" but wanted to try to keep eating them. Encouraged pt to take sips of liquid frequently.
--- NOTE | 2021-11-12 19:31 | NUR ---
PT RESTING IN BED. ASLEEP. NO DISTRESS. CALL LIGHT IN REACH. BED ALARM SET.
--- NOTE | 2021-11-12 20:41 | NUR ---
AMB TO BR WITH WALKER/CGA. PT ABLE TO PERFORM TOILETING TASKS PER SELF. VOIDING W/O DIFFICULTY. BACK TO BED. ABLE TO LIFT LEGS INTO BED. CALL LIGHT IN REACH. BED ALARM SET.
[2021-11-13 05:39] VITALS: BP 121/83; PULSE 59; TEMP 97.4
--- NOTE | 2021-11-13 06:58 | NUR ---
Shift report received from night assistant RN. Pt is awake and sitting up in bed. He reports having a "lucid dream" during the noc shift. He stated that he dreamed that "Elise told me not to pee all over the bed". He stated that he "woke up and felt that I was dry". He reports concerns about hallucinations and would like to speak to Dr. Acosta. Will discuss pt's concern with Dr. Acosta
--- NOTE | 2021-11-13 14:40 | NUR ---
Pt sitting up in bed visiting with his cousin. No complaints of pain/discomfort this shift. Pt. tolerated his recommended diet for breakfast and lunch w/out coughing/choking/aspirating. Pt. denies additional needs. Call light is in his reach
[2021-11-13 16:52] VITALS: BP 106/82; PULSE 80; TEMP 97.7
--- NOTE | 2021-11-13 20:00 | NUR ---
PT SLEEPING. NO DISTRESS. CALL LIGHT IN REACH. BED ALARM SET.
--- NOTE | 2021-11-13 21:58 | NUR ---
PT WAKES EAILY BUT VERY SLEEPY. TAKES HS MEDS WITH APPLESAUCE. DENIES COMPLAINTS. NO DISTRESS. CALL LIGHT IN REACH. BED ALARM SET.
[2021-11-14 06:10] VITALS: BP 113/78; PULSE 54; TEMP 97.3
--- NOTE | 2021-11-14 06:35 | NUR ---
shift report received from ROSS Olivares
--- NOTE | 2021-11-14 07:30 | NUR ---
sitting up in bed eating breakfast, denies needs at this time
--- NOTE | 2021-11-14 08:30 | NUR ---
speech therapy in working with patient
--- NOTE | 2021-11-14 10:46 | NUR ---
sitting up in WC and denies needs
--- NOTE | 2021-11-14 15:11 | NUR ---
shift report given to ROSS Frias
--- NOTE | 2021-11-14 15:14 | NUR ---
report from ROSS Archer. Patient resting in bed, call light within reach
[2021-11-14 16:41] VITALS: BP 102/65; PULSE 50; TEMP 98.3
--- NOTE | 2021-11-14 18:17 | NUR ---
Patient laying in bed watching TV. A&Ox4. VSS. Patient calls nursing staff for assistance to the bathroom. Ambulated with a one assist, walker and gait belt to the bathroom. Denies pain and discomfort. Call light within reach. Bed alarm on
--- NOTE | 2021-11-14 19:58 | NUR ---
RECEIVED CHANGE OF SHIFT REPORT FROM DAY SHIFT RN. PATIENT IN BED, EXIT ALARM ON, CALL LIGHT WITHIN REACH. NO NEEDS REPORTED AT TIME OF REPORT.
[2021-11-14 21:13] VITALS: BP 105/76
--- NOTE | 2021-11-14 21:22 | NUR ---
BP OBSERVED AT 105/76 AT THIS TIME, EARLIER 102/65. ATTEMPTED TO CONTACT ONCALL PROVIDER, NO TELEVISION REPAIR TEACHER WHIPPED TOPPING FINISHER, WILL ATTEMPT TO CALL PROVIDER AGAIN TO VERIFY ADMIN OF METOPROLOL AT THIS TIME.
--- NOTE | 2021-11-14 22:48 | NUR ---
CONTACTED ONCALL PROVIDER REGARDING BP 105/76, TO VERIFY IF OK TO GIVE METOPROLOL, PROVIDER REC HOLDING METOPROLOL WITH PARAMETERS TO HOLD MED FOR FUTURE DOSES ENTERED IN [employer]
[2021-11-15 05:13] VITALS: BP 111/76; PULSE 63; TEMP 97.7
--- NOTE | 2021-11-15 06:58 | NUR ---
Change of shift report given to day shift Faye HAWKINS.
[2021-11-15 07:38] VITALS: BP 104/73; PULSE 64
--- NOTE | 2021-11-15 08:15 | NUR ---
Patient did well with breakfast. He reports being hungery this am. He is ready to start the day, stand by assist. Patient to the bathroom, voided. Patient dressed with minimal assist. Ready for group theray. Will monitor.
[2021-11-15 15:45] VITALS: BP 128/79; PULSE 81
--- NOTE | 2021-11-15 16:00 | NUR ---
Blood pressure discussed with Wen Curry, Lisinpril given this afternoon per orders. Patient reports his blood pressure is elevated because he is frustrated with his family. Otherwise he denies needs.
[2021-11-15 17:54] VITALS: BP 109/72; PULSE 91; TEMP 97.7
--- NOTE | 2021-11-15 18:41 | NUR ---
RECEIVED CHANGE OF SHIFT REPORT FROM DAY SHIFT RN.
[2021-11-15 20:04] VITALS: BP 111/70; PULSE 71
[2021-11-16 05:50] VITALS: BP 116/67; PULSE 53; TEMP 97.5
--- NOTE | 2021-11-16 07:09 | NUR ---
Shift report received from date night caregiver RN
--- NOTE | 2021-11-16 07:28 | NUR ---
Change of shift report given to day shift RNSina.
--- NOTE | 2021-11-16 08:46 | NUR ---
Pt sitting up in bed. RT here to administer scheduled nebulizer treatment. Pt reporting concerns that his "cousins isn't doing what she's supposed to be doing". Pt. is concerned that she has not ordered a bed for him and he is concerned that she is planning to have pt. come live with her vs. him going home to his house after discharge. Pt. plans to discuss with cousin today as she plans to visit him. Pt. reporting back pain. Tylenol given with a.m. medications. Pt. denies additional needs. Call light is in his reach. Bed alarm is on
--- NOTE | 2021-11-16 12:51 | NUR ---
Pt sitting up in bed. He tolerated his recommended diet for lunch w/out coughing/choking/aspirating. He denies pain/discomfort or additional needs. Call light is in his reach. Bed alarm is on
--- NOTE | 2021-11-16 14:58 | NUR ---
Pt visited with cousin this afternoon & discussed ordering some home equipment. Pt is not agitated at this time. He does express feeling disapointment w/ himself because of left wrist weakness that has been bothersome today. Pt. plans to talk to PT about a supportive wrist brace tomorrow. Hospitalist KENYETTA in room to see pt.
[2021-11-16 16:46] VITALS: BP 107/65; PULSE 64; TEMP 97.7
--- NOTE | 2021-11-16 18:39 | NUR ---
Received change of shift report from day shift RN.
[2021-11-16 19:07] VITALS: BP 102/68; PULSE 80
--- NOTE | 2021-11-17 01:06 | NUR ---
Patient c/o back pain, requested and given pain med, see MAR.
[2021-11-17 05:30] VITALS: BP 128/76; PULSE 57; TEMP 97.5
--- NOTE | 2021-11-17 06:58 | NUR ---
Change of shift report given to day shift RN, Sina. Patient verbalized concerns regarding getting his house ready for when he is dismissed, stating he is frustrated with cousin, Altagracia/CASSY, "not getting things done". Patient stated he plans to speak with provider regarding his anxiety over his concerns/frustation with his cousin, as well as speaking with Structural Steel Detailer.
--- NOTE | 2021-11-17 07:01 | NUR ---
Shift report received from personnel monitor RN
--- NOTE | 2021-11-17 07:18 | NUR ---
Pt is tearful and feels like his anxiety is getting worse. PRN Ativan given at pt's request
--- NOTE | 2021-11-17 07:53 | NUR ---
Pt remains tearful. He is doubtful whether he will participate in therapy today because he has to "protect himself". Pt is also worried about his finances. Will notify addiction social worker
--- NOTE | 2021-11-17 08:56 | NUR ---
Pt off the unit to work with PT
--- NOTE | 2021-11-17 10:45 | NUR ---
Was informed of pt having increase tearful & frustrated w/ his cousin. Meet w/ pt, who became emotional upon SW entering room. He informed SW that he had a near fall over the weekend that scared the hell out of him. He also stated that he feels abandoned by his cousin because she hasn't been around much to spend time w/ him & she doesn't seem to be doing things that he has asked for. Let the pt vent & provided support. He does not want SW speaking to his cousin yet but did ask to talk to the financial counselor. He stated he felt the visit helped & would be interested in SW coming back. Will continue to provide support for pt during his stay.
--- NOTE | 2021-11-17 11:47 | NUR ---
Pt remains "upset" but is not currently tearful. He is "upset and worried" because he has requested that his cousin order some home equipment and she has not done so yet. Pt verbalized that he is "feeling stressed" and that he "doesn't know what to do about it". Encouraged pt to continue to speak with hospital social workers for assistance
--- NOTE | 2021-11-17 16:01 | NUR ---
Pt assisted from bathroom to bed using his FWW. He reports low back pain at 5/10. PRN Tylenol administered per order. Pt. denies additional needs. Call light is in his reach
[2021-11-17 17:05] VITALS: BP 135/73; PULSE 87; TEMP 98.5
[2021-11-17 20:00] VITALS: BP 104/68; PULSE 83; TEMP 98.1
[2021-11-18 05:56] VITALS: BP 112/76; PULSE 66; TEMP 97.5
--- NOTE | 2021-11-18 06:56 | NUR ---
BEDSIDE REPORT DONE . PATIENT RESTING IN BED. CALL LIGHT IN REACH
--- NOTE | 2021-11-18 10:54 | NUR ---
ASSESSMENT DONE ORDER. PATIENT IS ALERT AND ORIENT X 4. PATIENT HAS BEEN HERE FOR ABOUT 2 1/2 WEEKS NOW AND STATED THAT HE IS NOT READY TO LEAVE DUE TO SET BACK. PATIENT ABLE TO GET UP WITH VERY MIN ASSISTANCE. PATIENT LEFT ARM STILL UABLE TO USE FULLY. LEFT LEG IS GETTING BETTER. PATIENT ABLE TO WALK WITH WALKER AND GAIT BELT. NEED MIN ASSISTANCE WITH WALKING FOR STABILITY DUE TO PATIENT STATED THAT HE ALMOST FELL YSTERDAY.
[2021-11-18 16:55] VITALS: BP 99/67; PULSE 73; TEMP 98.4
--- NOTE | 2021-11-18 20:27 | NUR ---
PT A&OX4 RESTING IN BED. MEDS CRUSHED AND GIVEN AND ASSESSMENT COMPLETE. SCDS TO BLE. FALL PRECAUTIONS IN PLACE. PT HAS LEFT SIDED WEAKNESS. NO NEEDS AT THIS TIME. CALL LIGHT WITHIN REACH.
[2021-11-19 05:48] VITALS: BP 114/66; PULSE 70; TEMP 98.1
--- NOTE | 2021-11-19 07:01 | NUR ---
ASSESSMENT DONE ORDER. BEDSIDE REPORT DONE. CALL LIGHT IN REACH
--- NOTE | 2021-11-19 08:30 | NUR ---
Emailed NIKOLAS Iverson Financial counselor. Informed her of pt wanting to speak w/ her.
--- NOTE | 2021-11-19 10:10 | NUR ---
Patient/Family meeting conducted w/ pt & cousin. Also present was the PT, OT, ST, Dietitian, & telephone directory distributor driver. The team talked about how pt has progressed from a medical & functional standpoint. We talked about d/c plans & going to work on pt being more independent from w/c level, which pt was fine w/. Cousin informed the team that her is working on re-modeling the bathroom & will have a ramp to enter. Informed them of tentative d/c for 11/28/21 w/ recommendations probably for outpatient PT/OT/ST. They were fine w/ this plan. They had questions which the team answered.
--- NOTE | 2021-11-19 14:47 | NUR ---
Provided pt a copy of the team conference notes. Inquired if he had any questions/concerns from the Family Meeting. He commented that his cousin had stated something about them not being able to be there all the time & that he is considering hiring someone. Told him that will provide him a list of private duty care-givers.
[2021-11-19 17:05] VITALS: BP 103/70; PULSE 73; TEMP 99
--- NOTE | 2021-11-19 18:59 | NUR ---
DURING MY VISIT WITH PATIENT THIS EVENING, PATIENT STATED THAT HE FELT WEIRD AND DOESN'T KNOW WHY. HE SAID WITH THE MEIDCATION THAT HE IS TAKING MADE HIM FOGGY BUT NOW, HE IS CLEAR. I EXPLAIN THAT WE CAN TALK TO THE DOCTOR ABOUT DECREASE HIS NIGHT MEDICATION. AMY UNDERSTOOD AND WILL DECIDED IF HE WANT TO CONTINUE TO TAKE HIS METAZIPINE MEDICATION OR NOT. I INFORM NIGHT NURSE ABOUT IT.
--- NOTE | 2021-11-19 19:09 | NUR ---
RECEIVED CHANGE OF SHIFT REPORT FROM DAY SHIFT RN.
--- NOTE | 2021-11-19 19:40 | NUR ---
PT REFUSED TO TAKE
[2021-11-19 19:54] VITALS: BP 99/71; PULSE 74
[2021-11-20 04:33] VITALS: BP 101/73; PULSE 72; TEMP 98.1
--- NOTE | 2021-11-20 07:07 | NUR ---
CHANGE OF SHIFT REPORT GIVEN TO DAY SHIFT RNGREGG.
[2021-11-20 08:53] VITALS: BP 100/73
--- NOTE | 2021-11-20 14:09 | NUR ---
Provided pt w/ Private Duty hand knitter list. He stated that he would start looking over the list & making some calls.
[2021-11-20 17:44] VITALS: BP 101/70; PULSE 87; TEMP 98.7
--- NOTE | 2021-11-20 22:19 | NUR ---
PT RESTING IN BED. C/O NAUSEA. SEE MAR FOR TUMS. PT ABSOLUTELY REFUSES TO TAKE SHOES OFF. HE RELATES IT TOOK HIM OVER AN HOUR TO PUT ON ONE SHOE AND HES NOT GOING TO DO THAT AGAIN. IT WORE HIM OUT. PROVIDED RATIONALE FOR TAKING OFF SHOES BUT HE AGAIN REFUSED. HE SAID HE WILL TAKE THEM OFF FOR HIS BATH TOMORROW. GAVE ATIVAN FOR ANXIETY. CALL LIGHT IN REACH. BED ALARM SET.
--- NOTE | 2021-11-21 02:32 | NUR ---
CYBER DEFENSE INCIDENT RESPONDER ASSISTED PT TO BR WITH WALKER. PT INCONTINENT OF URINE, CHANGED CLOTHING. BACK TO BED. VERY UNSTEADY. CALL LIGHT IN REACH. BED ALARM SET.
[2021-11-21 05:49] VITALS: BP 109/71; PULSE 88; TEMP 98.6
--- NOTE | 2021-11-21 06:54 | NUR ---
Shift report received from awake overnight counselor RN
--- NOTE | 2021-11-21 07:52 | NUR ---
Pt sitting up in bed. He has just finished breakfast. Occasional coughing heard while he was eating. Pt. reporting continued low back pain. Tylenol was given during previous shift. Pt. assisted to wheelchair for position change/comfort. RT in room to administer scheduled nebulizer tx. Call light is in his reach
--- NOTE | 2021-11-21 15:19 | NUR ---
Pt resting sleeping supine in bed. He arouses easily from sleep. Denies pain/discomfort. Denies shortness of breath. He completed all therapies for the days. Call light is in his reach
[2021-11-21 17:13] VITALS: BP 103/64; PULSE 85; TEMP 97.1
--- NOTE | 2021-11-21 19:00 | NUR ---
PT C/O HEARTBURN. REQUESTED TUMS. GIVEN BY Neeru SWEENEY RN.
--- NOTE | 2021-11-21 19:23 | NUR ---
PT RELATES HEARTBURN RELEIVED AT THIS TIME. PT REPORTS HAD A ROUGH DAY IN PT. COULDN'T FINISH SESSION D/T RT LEG GOING NUMB AND HAVING DISCOMFORT IN THAT LEG. PT DENIES PAIN AT THIS TIME.
[2021-11-22 05:19] VITALS: BP 105/69; PULSE 89; TEMP 98.4
--- NOTE | 2021-11-22 06:56 | NUR ---
BEDSIDE REPORT DONE. CALL LIGHT IN REACH. PATIENT IN NO DISTRESS AT THIS TIME. RESTING IN BED WITH EYES CLOSED
--- NOTE | 2021-11-22 10:46 | NUR ---
ASSESSMENT DONE. PATIENT HAS BEEN UP AND DOWN WITH HIS DEPRESSION. FRUSTRATED WITH HIS FAMILY MEMBER AND GOING HOME NEXT WEEK. LUNG CLEAR. BOWEL SOUND ACTIVE. PATIENT ABLE TO STAND AND PEVIT TO WC WITH NO ISSUE. PATIENT STATED THAT HE HAS BEEN SLEEPING ALOT MORE AND HIS LEFT ARM IS NOT STONG HE WAS HOPING FOR. PATIENT ABLE TO GRAB ON THINGS BUT VERY LIGHTLY.
[2021-11-22 17:41] VITALS: BP 108/72; PULSE 95; TEMP 98.8
--- NOTE | 2021-11-22 21:00 | NUR ---
PT RESTING IN BED. BP 121/95. GAVE SCHEDULED LOPRESSOR. REQUESTED TYLENOL FOR GEN ACHES AND TUMS FOR HEARTBURN. LT SIDED WEAKNESS. AGRICULTURE SCIENTIST ASSITED PT TO BR WITH WALKER. DRAGS LT LEG ALITTLE. CALL LIGHT IN REACH. BED ALARM SET.
[2021-11-23 06:11] VITALS: BP 105/78; PULSE 82; TEMP 98.1
--- NOTE | 2021-11-23 06:37 | NUR ---
ASSESSMENT DONE. PATIENT RESTING IN BED CALL LIGHT IN REACH.
--- NOTE | 2021-11-23 10:09 | NUR ---
ASSESSMENT DONE ORDER. PATIENT HAD A COUGH ATTACK TODAY WITH ONE OF HIS SMASH MEDICATION. PATIENT STATED T HAT ITGOT STUCK IN THROAT. AFTER SMALL AMOUNT OF WATER, IT WENT DOWN. PATIENT LUNG SLIGHTNY CORSE ON LOWER LOBES.
[2021-11-23 17:24] VITALS: BP 104/66; PULSE 87; TEMP 98.1
--- NOTE | 2021-11-23 21:18 | NUR ---
PT RESTING IN BED. WORKED UP ABOUT POLITICAL PROGRAM ON TV AND HIS DPOA. REQ TYLENOL AND TUMS. ALSO GAVE ATIVAN. CALL LIGHT IN REACH. BED ALARM SET.
[2021-11-24] VITALS (7 sets, daily range): BP systolic 91–117; BP diastolic 68–86; PULSE 83–92; TEMP 97.9–100.3
--- NOTE | 2021-11-24 06:47 | NUR ---
Shift report received from hotel night auditor RN
--- NOTE | 2021-11-24 10:00 | NUR ---
Visited w/ pt & provided support. Pt continues to be upset & irritated w/ his cousin & what she is or not doing for him. Asked him if he felt he was ready to d/c on 11/28/21, & specifically inquired if he had his w/c & if the ramp would be in. He called his cousin, & she stated that she was getting the w/c today & that the ramp would be done on . Told him to have his cousin bring the w/c in so that he can practice in it. Did let him vent & talk about his issues w/ his cousin. Will continue to follow to provide support & d/c planning.
--- NOTE | 2021-11-24 13:36 | NUR ---
Called Dr. Khanna's office to clarify the type of OP PET Scan patient needs. Per his nurse, [id number] PET scan should be done. PET scan scheduled for 12/02 at [facility]. F/U with Dr. Khanna scheduled for 12/10
--- NOTE | 2021-11-24 15:04 | NUR ---
Pt back from getting a swallow study done. Pt. is visibly shivering and reports that the toes of his left foot are blue. Bilat feet noted to have purple/bluish toes. Cap refill < 3 secs bilat feet. Feet are cool to touch. Pt is afebrile at this time with SPO2 WNL. (see vital signs). Pt. assisted to bed. BLE elevated on pillow. Warm blankets given. No chest pain. No nausea. No shortness of breath. Will continue to monitor
--- NOTE | 2021-11-24 15:37 | NUR ---
Pt remains in bed. Both feet are pink, blanchable, but are still cool to touch. Warm blanket applied to BLE. Cap refill < 3 sec both feet. Pedal pulses palpable bilaterally
--- NOTE | 2021-11-24 15:52 | NUR ---
Bilateral SCDs placed on BLE
--- NOTE | 2021-11-24 19:16 | NUR ---
RECEIVED CHANGE OF SHIFT REPORT FROM DAY SHIFT RN. PATIENT IN BED, EXIT ALARM ON, CALL LIGHT WITHIN REACH.
[2021-11-25 05:38] VITALS: BP 126/80; PULSE 87; TEMP 98.2
--- NOTE | 2021-11-25 06:46 | NUR ---
CHANGE OF SHIFT REPORT GIVEN TO DAY SHIFT RNYOANDY.
[2021-11-25 06:52] LABS: BASO # 0.1 K/mm3 (0.0-0.2); BASO % 0.7 % (0.0-2.0); EOS # 0.1 K/mm3 (0.0-0.7); EOS % 1.8 % (0.0-4.0); GRAN # 5.7 K/mm3 (1.4-6.5); GRAN % 74.7 % (42.2-75.2); HEMATOCRIT 39.1 % (42.0-52.0); HEMOGLOBIN 13.4 g/dl (13.5-18.0); LYMPH # 1.1 K/mm3 (1.2-3.4); LYMPH % 13.8 % (20.0-51.0); MEAN CELL VOLUME 89 fl (80.0-100.0); MEAN CORPUSCULAR HEMOGLOBIN 30 pg (27-31); MEAN CORPUSCULAR HGB CONC 34 g/dl (33.0-37.0); MEAN PLATELET VOLUME 10.7 fl (7.4-10.4); MONO # 0.7 K/mm3 (0.1-0.6); MONO % 8.7 % (1.7-9.3); PLATELET COUNT 156 K/mm3 (130-400); RED BLOOD COUNT 4.42 M/mm3 (4.20-5.60); REDCELL DISTRIBUTION WIDTH-CV 13.2 % (11.5-14.5)
--- NOTE | 2021-11-25 06:53 | NUR ---
Shift report received from diesel power mechanic RN
[2021-11-25 07:08] LABS: CALCIUM 9.1 mg/dL (8.4-10.2); CREATININE, serum 1.19 mg/dL (0.72-1.25); POTASSIUM 4.3 mmol/L (3.5-4.5)
--- NOTE | 2021-11-25 10:34 | NUR ---
Pt is off the unit for Group Therapy
[2021-11-25 17:59] VITALS: BP 96/65; PULSE 79; TEMP 98.9
--- NOTE | 2021-11-25 19:38 | NUR ---
RECEIVED CHANGE OF SHIFT REPORT FROM DAY SHIFT RN. EXIT ALARM ON, CALL LIGHT WITHIN REACH. REQUESTING TYLENOL AND TUMS WITH [facility] "WHENEVER THEY ARE READY".
[2021-11-25 20:02] VITALS: BP 98/55
--- NOTE | 2021-11-25 22:30 | NUR ---
PATIENT CALLED OUT TO HAVE SCD TAKEN OFF, REPORTED "FEEL HOT", AND ADDITIONAL BLANKETS ALSO REMOVED.
[2021-11-26 04:31] VITALS: BP 108/63; PULSE 75; TEMP 98.5
--- NOTE | 2021-11-26 06:12 | NUR ---
PATIENT DRESSED SELF IN BATHROOM WITH APPROPRIATE EQUIPMENT, HAD PICKED OUT CLOTHING FROM CLOSET PER SELF, SELF PROPELLED IN W/C WITH NO COMPLAINTS. REMAINS UP IN W/C "TO BE READY FOR PT"
--- NOTE | 2021-11-26 06:59 | NUR ---
CHANGE OF SHIFT REPORT GIVEN TO DAY SHIFT RNED.
--- NOTE | 2021-11-26 07:21 | NUR ---
ASSESSMENT DONE. PATIENT RESTING IN WC. CALL LIGHT IN REACH
--- NOTE | 2021-11-26 11:32 | NUR ---
ASSESSMENT DONE. PATIENT ALERT AND ORIENT. ABLE TO DRINK THIN LIQUID NOW. PATIENT WILL BE GOING HOME Wednesday. PATIENT ABLE TO USE THE WHEELCHAIR TO GET AROUND BUT STILL NEED 1-2 PERSON ASSISTANCE TO WALK WITH WALKER. PATIENT LEFT SIDE IS STILL WEAK DUE TO THE STROKE.
--- NOTE | 2021-11-26 13:05 | NUR ---
Reviewed team conference note w/ pt & provided copy of team conference notes. Pt stated that he understood but was excited about what he had accomplished w/ PT today because he was "pissed". He did tell SW why he was "pissed", which dealt w/ Social Security calling him for the interview this morning because they were unable to reach his cousin. Directed him back to d/c planning & he informed SW the ramp is suppose to be finished today as well as the bathroom. We reviewed the equipment that he has purchased, w/c & r/walker. We talked about outpatient therapy & SW told him that it would be best if he went to [facility] outpatient clinic since they are tied to our system & do not have to do another hardship application. He was fine w/ this. Told him the team is still planning on d/c for 11/28/21, which he was pleased to hear. He had no other questions/concerns at this time. SW will continue to work w/ pt on d/c planning & emotional support.
[2021-11-26 17:47] VITALS: BP 109/64; PULSE 76; TEMP 98.3
--- NOTE | 2021-11-26 20:45 | NUR ---
PT VERY AGITATED. WATCHING POLITICAL NEWS. VERBALIZES OPINION. ALSO UNSET AT DPOA/FAMILY REGARDING DISCHARGE PLANS. ENC PT TO CALM DOWN. TURN TV OFF OR SOMETHING MORE CALMING. GAVE ATIVAN AT THIS TIME. PT ALSO REQUESTED TYLENOL AND TUMS. SEE MAR. CALL LIGHT IN REACH. BED ALARM SET.
--- NOTE | 2021-11-27 02:49 | NUR ---
PT SLEEPING. NO DISTRESS.
[2021-11-27 05:47] VITALS: BP 115/73; PULSE 72; TEMP 98.3
--- NOTE | 2021-11-27 10:26 | NUR ---
PT IN CHAIR AT TIME OF ASSESSMENT. NO COMPLAINTS OF PAIN AT THIS TIME
--- NOTE | 2021-11-27 13:31 | NUR ---
Visited w/ pt about d/c tomorrow, 11/28/21. Talked to him about team recommending outpatient PT/OT, which he wants to do. We talked about his self-pay/Medicaid pending status & told him that he could come to [facility] since it's connected w/ the hospital & the hardship application that was completed. He reminded SW that he lives in [place]. Told him that [facility] have [facility] she[facility] & he told SW that he does not want to go there but would prefer to come to [facility] but would need to be after Halloween since his cousin is working the [employer]. Inquired if he had any questions/concern or anything else that SW could help w/ but he thought he was good. Reminded him of d/c tomorrow after 11:00 am which he stated he let his cousin know. Will continue to work w/ pt on d/c planning.
[2021-11-27 17:08] VITALS: BP 101/61; PULSE 70; TEMP 98
[2021-11-27 20:50] VITALS: BP 104/60
[2021-11-28 05:58] VITALS: BP 105/66; PULSE 63; TEMP 98.8
--- NOTE | 2021-11-28 06:47 | NUR ---
BEDE SIDE REPORT DONE. PATIENT IN BED RESTING. NO DISTRESS NOTED
[2021-11-28] MEDS ORDERED: PROAIR HFA0.09 MG/AC IH (08:14)
[2021-11-28] MEDS ORDERED: MUCUS RELIEF200 MG PO (08:15)
[2021-11-28] MEDS ORDERED: LIPITOR 40MG TA40 MG PO (08:17)
[2021-11-28] MEDS ORDERED: LOPRESSOR 225 MG/TAB PO (08:17)
[2021-11-28] MEDS ORDERED: ZESTRIL 10MG10 MG PO (08:18)
--- NOTE | 2021-11-28 09:59 | NUR ---
Contacted [facility]. Scheduled outpatient PT/OT for 12/09/21 @ 2:45 & 3:45 pm.
--- NOTE | 2021-11-28 11:07 | NUR ---
ASSESSENT DONE. PATIENT ALERT AND ORIENTED, GETTING DISCHARGE TODAY. LUNG CLEAR. BOWEL SOUND ACTIVE. PATIENTA BLE TO MOVE AROUND IN WHEELCHAIR. STILL HAVE LEFT SIDE WEAKNESS BUT ABLE TO GET UP AND DOWN FROM CHAIR OR BED
--- NOTE | 2021-11-28 12:07 | NUR ---
DISCHRAGE AT 1245PM. REVIEW ALL DOCTOR APPOINTMENT AND EDUCATION WITH PATIENT AND FAMILY. EXPLANI ABOUT ALL MEDICATION AND IF WANT TO CONTINUE WITH ANY THAT DOCTOR D/C, HE WILL HAVE TO TALK TO HIS PCP. PATIENT UNDERTOOD. I HELP AOTIENT INTO TRUCK VIA ER AND P ATIENT THANK US TREMEDOUSLY. AMY STARTED TO CRY. EXPLAIN THAT HE DID IT AND THESE TEARS OF EM. PATIENT UNDERSTOOD.
--- NOTE | 2021-11-28 13:45 | NUR ---
Discharge QIM scores were reviewed by the team. Code of 6 chosen for toilet hygiene was determined by team discussion to be the most usual performance for this patient during the discharge assessment period. Code of 4 chosen for toilet transfer was determined by team discussion to be the most usual performance for this patient during the discharge assessment period.--Dionna Zamora,
== END 2021-11-28 11:45 | disposition home or self-care (01) | DRG 57 ==
PROVIDERS: Internal Medicine; Physician Assistant; Student in an Organized Health Care Education/Training Program; ADMIT Physical Medicine & Rehabilitation Sports Medicine
DX: I69.354 Hemiplegia and hemiparesis following cerebral infarction affecting left non-dominant side (principal); I24.8 Other forms of acute ischemic heart disease; J44.1 Chronic obstructive pulmonary disease with (acute) exacerbation; N17.9 Acute kidney failure, unspecified; N39.0 Urinary tract infection, site not specified; I16.1 Hypertensive emergency; I69.322 Dysarthria following cerebral infarction; Z66 Do not resuscitate; Z72.0 Tobacco use; E87.6 Hypokalemia; R73.9 Hyperglycemia, unspecified; I69.391 Dysphagia following cerebral infarction; R13.10 Dysphagia, unspecified; I12.9 Hypertensive chronic kidney disease with stage 1 through stage 4 chronic kidney disease, or unspecified chronic kidney disease; Z88.0 Allergy status to penicillin; Z95.818 Presence of other cardiac implants and grafts; Z73.6 Limitation of activities due to disability; R26.89 Other abnormalities of gait and mobility; Z79.899 Other long term (current) drug therapy; K21.9 Gastro-esophageal reflux disease without esophagitis; R11.2 Nausea with vomiting, unspecified; M54.41 Lumbago with sciatica, right side; G47.09 Other insomnia; E87.5 Hyperkalemia; R21 Rash and other nonspecific skin eruption; N18.2 Chronic kidney disease, stage 2 (mild); R91.8 Other nonspecific abnormal finding of lung field; F43.23 Adjustment disorder with mixed anxiety and depressed mood
CPT/HCPCS: J0692; J1650; J7030; J7512; Q9967